=== PATIENT | female | born 1970 | race Caucasian/White ===

== ENCOUNTER 2016-06-27 21:20 | Emergency (ER) | payer OTHER ==
--- NOTE | 2016-06-27 22:16 | ED ORDER SUMMARY ---
..... Patient: JENNIFER BARR OrderSheet [facility] VisitID: [id number] [place] [address] 45y, F Registration Date/Time: 06/27/2016 ORDER SHEET Weight: 74.8 kg Allergies: No Known Drug Allergy GENERAL ORDERS: CBC w Diff Urgent (21:35 06/27/2016 HBivens A.R.N.P.) (Ack 21:38 AMcQuoid ER Tech1) (21:58 TBowen R.N.) CMP Urgent (21:35 06/27/2016 HBivens A.R.N.P.) (Ack 21:38 AMcQuoid ER Tech1) (21:58 TBowen R.N.) UA-Culture if indicated Urgent (21:35 06/27/2016 HBivens A.R.N.P.) (Ack 21:38 AMcQuoid ER Tech1) (21:58 TBowen R.N.) Amylase Urgent (21:35 06/27/2016 HBivens A.R.N.P.) (Ack 21:38 AMcQuoid ER Tech1) (21:58 TBowen R.N.) Lipase Urgent (21:35 06/27/2016 HBivens A.R.N.P.) (Ack 21:38 AMcQuoid ER Tech1) (21:58 TBowen R.N.) Urine Urgent (21:35 06/27/2016 HBivens A.R.N.P.) (Ack 21:38 AMcQuoid ER Tech1) (21:58 TBowen R.N.) MEDICATION ORDERS: K-Dur PO 40 meq (Do not crush or chew, NOW) (22:15 06/27/2016 HBivens A.R.N.P.) (22:18 TBowen R.N.) IV FLUIDS: IV NS : initial bolus 1000 mL (1000 mL/hr), then none - (NOW) (21:35 06/27/2016 HBivens A.R.N.P.) (21:58 TBowen R.N.) Toradol IV 30 mg (NOW) (21:35 06/27/2016 HBivens A.R.N.P.) (21:59 TBowen R.N.) Zofran IV 4 mg (NOW) (21:35 06/27/2016 HBivens A.R.N.P.) (21:59 TBowen R.N.) IV Saline Lock (21:35 06/27/2016 HBivens A.R.N.P.) (21:52 TBowen R.N.) ORDER SHEET NOTES: [Electronically signed by Amairani Medina R.N. (:06/27/2016)] [Electronically signed by Annette SoriaNKinaPKina (13:51 06/28/2016)] [Electronically locked/signed by Amairani Medina R.N. (:06/27/2016)]
--- NOTE | 2016-06-27 22:16 | ED NURSING NOTES ---
Clinical Report - Nurses [facility] [address] [place] [address] 06/27/2016 21:20 Patient: JENNIFER BARR TRIAGE Triage time 21:26. Acuity: LEVEL 3. Chief Complaint: ABDOMINAL PAIN, NAUSEA, VOMITING and DIARRHEA. --21:27 Cinthia De La Torre. 21:28 06/27/16. BP: 196/106. HR: 83. RR: 18. O2 saturation: 100%. Temp: 98 F. Pain level now: 10/12. --21:29 Cinthia De La Torre. Weight: 74.8 kg. Height/Length: 60 inches. BMI: 32.2. --21:27 Wil RIrene. Medications None. --21:27 Cinthia De La Torre. Allergies No Known Drug Allergy. --21:27 Cinthia De La Torre. History Arrived by private vehicle. Historian: patient. Onset. (3 days ago). She has had nausea, vomiting, diarrhea and abdominal pain. Treatment CONSTRUCTION SERVICES TECHNICIAN: None. PAST MEDICAL HX: Immunizations: up-to-date. Last normal menstrual period- 2 days ago. SOCIAL HX: Never smoker. Occasional alcohol use. No drug use. No recent travel. No known contact with a sick individual. SELF HARM ASSESSMENT: A self harm assessment was performed. The patient answered "no" to the question "Have you recently felt down, depressed, or hopeless?", "Have you noticed less interest or pleasure in doing things?", "Do you have thoughts of harming or killing yourself?", "Are you here because you tried to hurt yourself?", "Have you ever tried to hurt yourself before today?", "Have you recently had thoughts about harming or killing others?" and "Do you have any dangerous items in your possession?". FALL RISK ASSESSMENT: Fall risk assessment completed. No fall risk identified. NUTRITIONAL RISK ASSESSMENT: The nutritional risk assessment revealed no deficiencies. FUNCTIONAL ASSESSMENT: Functional assessment: no impairments noted. LEARNING NEEDS ASSESSMENT: The learning needs assessment revealed no barriers. ABUSE ASSESSMENT: Abuse assessment: The patient was asked "Do you feel safe in your home?". SKIN INTEGRITY ASSESSMENT: Skin integrity risk assessment completed. No skin integrity risk identified. --: Johnnie De La Torre PROBLEMS: Spontaneous (Miscarriage). LNMP - Last Normal Menstrual Period. Hypertension. --: Johnnie De La Torre ADDITIONAL SURGERIES: . D&C. Ectopic. --: Johnnie De La Torre Interventions ID band on patient. To treatment room. --: Johnnie De La Torre PHYSICAL ASSESSMENT Ambulatory to room. GENERAL / NEURO / PSYCH: Alert. Oriented X 4. Appears in no acute distress. HEENT: Mucous membranes are pink. RESPIRATORY: Respirations not labored. Breath sounds within normal limits. CVS: Normal sinus rhythm noted. Capillary refill less than 2 seconds. GI / : The patient has had nausea. Emesis noted. Has vomited several times. She has diarrhea. This has occurred several times. Abdomen soft. Bowel sounds within normal limits. SKIN: Skin is warm and dry. -- Johnnie De La Torre NURSING PROGRESS NOTES Patient gowned. Two patient identifiers checked. Call light placed in reach. Side rails up x 1. Bed placed in lowest position. Brakes of bed on. --: Johnnie De La Torre :52 06/27/2016 Site #1 started via IV in the right antecubital space with an 20g angiocath, with aseptic technique and good blood return; one attempt. Blood drawn: rainbow set. Labeled in the presence of the patient and sent to the lab. Saline lock flushed with 10 mL saline. --: Johnnie De La Torre Patient ID band checked for patient name and birthdate: patient confirmed. Clean catch urine collected with return of yellow-colored clear urine; sample sent to lab. Specimen labeled in the presence of the patient. --: Johnnie De La Torre 21:58 06/27/2016 Started bag #1 1000 mL IV Fluids IV NS (Saline); at 1000 mL/hr over 1 hour(s) via site #1 via IV pump. Allergies verified and confirmed 5 rights. IV patency established. IV site checked: no pain, redness, or swelling. IV flushed thoroughly pre- and post-medication administration. --21:58 Johnnie De La Torre 21:58 06/27/2016 Toradol IVP 30 mg given over 2 minute(s) via site #1. Allergies verified and confirmed 5 rights. IV patency established. IV site checked: no pain, redness, or swelling. IV flushed thoroughly pre- and post-medication administration. IVP given by RN. --21:58 Johnnie De La Torre 21:59 06/27/2016 Zofran (Ondansetron HCl) IVP 8 mg given over 2 minute(s) via site #1. Allergies verified and confirmed 5 rights. IV patency established. IV site checked: no pain, redness, or swelling. IV flushed thoroughly pre- and post-medication administration. IVP given by RN. --:59 Johnnie De La Torre 22:18 06/27/2016 K-DUR (Potassium Chloride Odalys ER) PO 40 meq given. Allergies verified and confirmed 5 rights. --22:18 Johnnie De La Torre 22:18 06/27/2016 IV Fluids IV NS Discontinued: bag #1 discontinued upon discharge. Total amount infused: 500 mL. IV patency established. IV site checked: no pain, redness, or swelling. IV flushed thoroughly. --22:18 Johnnie De La Torre DISPOSITION / DISCHARGE 22:24 06/27/2016 Site #1 removed upon discharge. Catheter intact. Bandaid applied. --:24 Johnnie De La Torre Departure time: 22:25. Condition at departure: improved. No learning barriers present. Discharge instructions provided and reviewed with the patient. Reviewed medication(s) side effects, precautions, dosing and course information. Prescription(s) given to the patient. Work note given. Patient verbalized understanding. Written instructions provided in British. No warning instructions, treatment instructions, referrals given to the patient, diet instructions or activity restrictions. No follow up contact number given or stop smoking instructions. The patient was discharged by the nurse practitioner. She was discharged home. She left the Emergency Department ambulatory and via private vehicle. Patient driving. FALL RISK ASSESSMENT: Fall risk assessment completed. No fall risk identified. --22:25 Johnnie De La Torre 22:23 06/27/16. BP: 174/89. HR: 89. RR: 18. O2 saturation: 99%. Temp: deferred. Pain level now: 0/10. --22:25 Johnnie De La Torre Locked/Released at 06/27/2016 22:26 by Johnnie De La Torre
--- NOTE | 2016-06-27 22:16 | ED ORDER SUMMARY ---
..... Patient: JENNIFER BARR OrderSheet [facility] VisitID: [id number] [place] [address] 45y, F Registration Date/Time: 06/27/2016 ORDER SHEET Weight: 74.8 kg Allergies: No Known Drug Allergy GENERAL ORDERS: CBC w Diff Urgent (21:35 06/27/2016 HBivens A.R.N.P.) (Ack 21:38 AMcQuoid ER Tech1) (21:58 TBowen R.N.) CMP Urgent (21:35 06/27/2016 HBivens A.R.N.P.) (Ack 21:38 AMcQuoid ER Tech1) (21:58 TBowen R.N.) UA-Culture if indicated Urgent (21:35 06/27/2016 HBivens A.R.N.P.) (Ack 21:38 AMcQuoid ER Tech1) (21:58 TBowen R.N.) Amylase Urgent (21:35 06/27/2016 HBivens A.R.N.P.) (Ack 21:38 AMcQuoid ER Tech1) (21:58 TBowen R.N.) Lipase Urgent (21:35 06/27/2016 HBivens A.R.N.P.) (Ack 21:38 AMcQuoid ER Tech1) (21:58 TBowen R.N.) Urine Urgent (21:35 06/27/2016 HBivens A.R.N.P.) (Ack 21:38 AMcQuoid ER Tech1) (21:58 TBowen R.N.) MEDICATION ORDERS: K-Dur PO 40 meq (Do not crush or chew, NOW) (22:15 06/27/2016 HBivens A.R.N.P.) (22:18 TBowen R.N.) IV FLUIDS: IV NS : initial bolus 1000 mL (1000 mL/hr), then none - (NOW) (21:35 06/27/2016 HBivens A.R.N.P.) (21:58 TBowen R.N.) Toradol IV 30 mg (NOW) (21:35 06/27/2016 HBivens A.R.N.P.) (21:59 TBowen R.N.) Zofran IV 4 mg (NOW) (21:35 06/27/2016 HBivens A.R.N.P.) (21:59 TBowen R.N.) IV Saline Lock (21:35 06/27/2016 HBivens A.R.N.P.) (21:52 TBowen R.N.) ORDER SHEET NOTES: [Electronically signed by Amairani Medina R.N. (:06/27/2016)] [Electronically signed by Annette SoriaNKinaPKina (13:51 06/28/2016)] [Electronically locked/signed by Amairani Medina R.N. (:06/27/2016)]
--- NOTE | 2016-06-27 22:16 | ED CLINICAL REPORT ---
Clinical Report - Physicians/[facility] [address] [place] [address] 06/27/2016 21:20 Patient: JENNIFER BARR Time Seen: 21:28; initial patient contact, initial documentation, patient care assumed. Arrived- By private vehicle. Historian- patient. HISTORY OF PRESENT ILLNESS Chief Complaint: VOMITING. This started about 3 days ago and is still present. No recent travel. She has had nausea and mild, constant abdominal pain. The pain is described as located in the epigastrium. She has had vomiting (x3-4 times today). The vomiting has occurred several times and has been bilious. No feculent emesis, blood-tinged emesis, coffee-grounds emesis, frankly bloody emesis or unusually dark emesis. She has had mild diarrhea (x3-4 times today). This has occurred several times. It has been watery. No bloody, mucous containing or blood-tinged diarrhea. No black stools, bloody stools, constipation, flank pain or known contact with a sick individual. No change in routine. Has not recently been camping or on antibiotics. Possible bad food exposure. The illness is described as moderate. Similar symptoms previously: None. Recent medical care: Not recently seen/assessed. REVIEW OF SYSTEMS No fever, difficulty with urination, dark urine, chest pain or difficulty breathing. All systems otherwise negative, except as recorded above. PAST HISTORY See nurses notes. PROBLEMS: Spontaneous (Miscarriage). LNMP - Last Normal Menstrual Period. Hypertension. --21:27 Wil R.N. ADDITIONAL SURGERIES: . D&C. Ectopic. --21:27 Wil R.N. SOCIAL HISTORY Never smoker. Occasional alcohol use. No drug use. No recent travel. Is a local resident. FAMILY HISTORY Negative. ADDITIONAL NOTES The nursing notes have been reviewed with agreement regarding the chief complaint, HPI, ROS, PMH and patient medications and allergies. PHYSICAL EXAM Vital Signs: 06/27/2016 21:28 BP: 196/106. HR: 83. RR: 18. O2 saturation: 100%. Temp: 98 F. Pain level now: 10/12. Have been reviewed as abnormal and appear to be correct. Hypertensive. Heart rate normal. Respiratory rate normal. Temperature normal. Oxygen saturation normal. Appearance: Alert. Oriented X3. No acute distress. Eyes: Pupils equal, round and reactive to light. Eyes normal inspection. Neck: Normal inspection. Neck supple. CVS: Normal heart rate and rhythm. Heart sounds normal. Pulses normal. Respiratory: No respiratory distress. Breath sounds normal. Abdomen: Soft and nontender. Bowel sounds normal. No organomegaly. No mass. Back: Normal inspection. Skin: Skin warm and dry. Normal skin color. No rash. Normal skin turgor. Extremities: Extremities exhibit normal ROM. No lower extremity edema. Neuro: Oriented X 3. No motor deficit. No sensory deficit. LABS, X-RAYS, AND EKG Laboratory Tests: UA-Culture if indicated: (CARLENE: 06/27/2016 21:40) ( [facility] 06/27/2016 22:09) Final results Test Result Flag Units (Reference) URINE COLOR YELLOW URINE APPEARANCE CLEAR URINE GLUCOSE NEGATIVE (NEGATIVE) URINE BILIRUBIN NEGATIVE (NEGATIVE) URINE KETONE NEGATIVE (NEGATIVE) URINE SPECIFIC GRAVITY 1.015 (1.010-1.030) URINE PH 7.0 (5.0-8.0) URINE PROTEIN NEGATIVE (NEGATIVE) URINE UROBILINOGEN 1.0 EU/dL (0.2-1.0) URINE NITRITE NEGATIVE (NEGATIVE) URINE BLOOD NEGATIVE (NEGATIVE) URINE LEUK ESTERASE NEGATIVE (NEGATIVE) URINE RBC NONE SEEN rbc/hpf (0-1) URINE WBC NONE SEEN wbc/hpf (0-1) URINE EPITHELIAL CELLS 1-3 EPI/hpf (0-5) 2+ AMORPHOUS URINE BACTERIA FEW (1+) (NONE SEEN) URINE COMMENT CULT NOT INDICATED URINE CULTURES ARE SET-UP BASED ON THE FOLLOWING CRITERIA:POSITIVE NITRITEPOSITIVE LEUKOCYTE ESTERASEGREATER THAN 10 WHITE BLOOD CELLSMODERATE (2+) OR GREATER BACTERIA Urine: (CARLENE: 06/27/2016 21:40) ( [facility] 21:51) Final results Test Result Flag Units (Reference) URINE NEGATIVE CBC w Diff: (CARLENE: 06/27/2016 21:45) ( M[facility]cv[facility] 06/27/2016 22:03) Final results Test Result Flag Units (Reference) WHITE BLOOD COUNT 8.1 K/uL (4.5-11.5) RED BLOOD COUNT 5.04 M/uL (4.00-5.20) HEMOGLOBIN 14.8 gm/dL (12.0-16.0) HEMATOCRIT 43.4 % (36.0-46.0) MEAN CELL VOLUME 86 fL (80-100) MEAN CORPUSCULAR HGB 29 pg (26-34) MEAN CORPUSCULAR HGB CONC 34 g/dL (31-37) RED CELL DISTRIBUTION WIDTH 13.0 % (11.6-14.8) PLATELET COUNT 411 H K/uL (150-400) NEUTROPHIL % 62.5 % (50-75) LYMPH % 26.0 % (25-40) MONO % 8.5 % (3-14) EOSINOPHIL % 2.0 % (0-4) BASOPHIL % 1.0 % (0-2) CMP: (CARLENE: 06/27/2016 21:45) ( MsgRcvd 06/27/2016 22:13) Final results Test Result Flag Units (Reference) GLUCOSE 102 mg/dL (70-110) BUN 7 mg/dL (7-18) CREATININE 0.9 mg/dL (0.6-1.3) Estimated GFR >60 mL/min Estimated GFR- >60 mL/min Note: Persistent reduction over 3 months in eGFR<60 mL/min/1.73 m2 defines CKD. Patients with eGFR values>=60 mL/min/1.73 m2 may also have CKD if evidence ofpersistent proteinuria. Additional information may be foundat www.kidney.org. SODIUM 142 mmol/L (136-145) POTASSIUM 3.1 L mmol/L (3.5-5.1) CHLORIDE 102 mmol/L (98-107) CARBON DIOXIDE 29 mmol/L (21-32) CALCIUM 9.2 mg/dL (8.5-10.1) TOTAL PROTEIN 8.7 H g/dL (6.4-8.2) ALBUMIN 4.2 g/dL (3.3-5.0) BILIRUBIN, TOTAL 0.4 mg/dL (0.0-1.0) ALKALINE PHOSPHATASE 98 U/L (46-116) AST (SGOT) 40 H U/L (15-37) ALT (SGPT) 68 U/L (12-78) LIPASE 253 U/L (73-393) AMYLASE 55 U/L (25-115) . PROGRESS AND PROCEDURES Patient counseled in person regarding the patient's stable condition, test results and diagnosis. 22:15. Differential Diagnosis: I considered gastritis, peptic ulcer disease, gastroesophageal reflux disease, GI bleed, Crohn's disease, colonic obstruction, colon cancer, gastroenteritis, cholecystitis, pancreatitis, viral syndrome, enterocolitis, urinary tract infection, hepatitis and as a possible cause of vomiting in this patient. This is a partial list of diagnoses considered. Above considerations are based on history, physical exam and laboratory data. Differential diagnosis was discussed with patient. Disposition: Discharged home in good and improved condition (22:15). Condition: good and stable. CLINICAL IMPRESSION Acute noninfectious gastroenteritis. INSTRUCTIONS Do not work today, tomorrow. Take clear liquids only (frequent sips) for the next 24 hours until better. May continue medications with sips only. Advance diet as tolerated. Avoid. (htn). Warnings: GENERAL WARNINGS: Return or contact your physician immediately if your condition worsens or changes unexpectedly, if not improving as expected, or if other problems arise. SPECIFICALLY, return if you develop pain in the abdomen or pelvis, fever, the inability to keep fluids down, blood in vomitus, blood in diarrhea, fainting or lightheadedness. Prescription Medications: Zofran 4 mg: Take 1 orally every six hours as needed for nausea/vomiting. Dispense ten (10). No refills. Substitution is permissible. Follow-up: Follow up with your doctor in about two days even if well. Summary of care provided to patient. Understanding of the discharge instructions verbalized by patient. (Electronically signed by Annette Soria A.R.N.P. 06/28/2016 13:51)
--- NOTE | 2016-06-28 13:51 | ED MED RECONCILIATION SUMMARY ---
Patient: JENNIFER BARR Medication Reconciliation Report [facility] VisitID: [id number] [place] [address] 45y, F Registration Date/Time: 06/27/2016 Weight: 74.8 kg Height/Length: 60 in. BMI: 32.2 ALLERGIES: No Known Drug Allergy The patient's Home Medications are listed below: NONE. The source(s) of the original Home Medication information: Not obtained. The following Medications were given to the patient in the Emergency Department: IV NS IV Fluids bolus 0, then 1000 mL/hr, administered: 06/27/2016 9:58:00 PM Toradol [IVP] IVP 30 mg, administered: 06/27/2016 9:58:00 PM Zofran [IVP] IVP 8 mg, administered: 06/27/2016 9:59:00 PM K-DUR [PO] PO 40 meq, administered: 06/27/2016 10:18:00 PM The following Medications were prescribed to the patient: Zofran 4 mg: Take 1 orally every six hours as needed for nausea/vomiting. Dispense ten (10). No refills. Substitution is permissible. -- Annette Soria A.R.N.P.
--- NOTE | 2016-06-28 13:51 | ED MED RECONCILIATION SUMMARY ---
Patient: JENNIFER BARR Medication Reconciliation Report [facility] VisitID: [id number] [place] [address] 45y, F Registration Date/Time: 06/27/2016 Weight: 74.8 kg Height/Length: 60 in. BMI: 32.2 ALLERGIES: No Known Drug Allergy The patient's Home Medications are listed below: NONE. The source(s) of the original Home Medication information: Not obtained. The following Medications were given to the patient in the Emergency Department: IV NS IV Fluids bolus 0, then 1000 mL/hr, administered: 06/27/2016 9:58:00 PM Toradol [IVP] IVP 30 mg, administered: 06/27/2016 9:58:00 PM Zofran [IVP] IVP 8 mg, administered: 06/27/2016 9:59:00 PM K-DUR [PO] PO 40 meq, administered: 06/27/2016 10:18:00 PM The following Medications were prescribed to the patient: Zofran 4 mg: Take 1 orally every six hours as needed for nausea/vomiting. Dispense ten (10). No refills. Substitution is permissible. -- Annette Soria A.R.N.P.
--- NOTE | 2016-06-28 13:51 | ED DISCHARGE INSTRUCTIONS ---
Patient: JENNIFER BARR General Instructions [facility] VisitID: [id number] [place] [address] 45y, F Registration Date/Time: 06/27/2016 Acute noninfectious gastroenteritis. INSTRUCTIONS Do not work today, tomorrow. Take clear liquids only (frequent sips) for the next 24 hours until better. May continue medications with sips only. Advance diet as tolerated. Avoid. (htn). Warnings: GENERAL WARNINGS: Return or contact your physician immediately if your condition worsens or changes unexpectedly, if not improving as expected, or if other problems arise. SPECIFICALLY, return if you develop pain in the abdomen or pelvis, fever, the inability to keep fluids down, blood in vomitus, blood in diarrhea, fainting or lightheadedness. Prescription Medications: Zofran 4 mg: Take 1 orally every six hours as needed for nausea/vomiting. Dispense ten (10). No refills. Substitution is permissible. Follow-up: Follow up with your doctor in about two days even if well. Summary of care provided to patient. Understanding of the discharge instructions verbalized by patient. ADDITIONAL INFORMATION Viral Gastroenteritis (6Yr-Adult) Gastroenteritis is another name for thestomach flu.It is most often caused by a virus that affects the stomach and intestinal tract. Symptoms include stomach cramping and fever, vomiting and/or diarrhea, and can last from 2 to 7 days. The danger from repeated vomiting or diarrhea is dehydration. This is the loss of too much water and minerals from the body. When this occurs, body fluids must be replaced. Antibiotics are not effective for this illness, but simple home treatment will be helpful. Home Care If symptoms are severe, rest at home for the next 24 hours. Avoid tobacco, caffeine, and alcohol use, which can worsen symptoms. Acetaminophen (Tylenol) or ibuprofen (Motrin, Advil) may be usedfor fever or pain unless another medication was prescribed. NOTE: If you have chronic liver or kidney disease or ever had a stomach ulcer or GI bleeding, talk with your doctor before using these medicines. Aspirin should never be used in anyone under 18 years of age who is ill with a fever. It may cause severe liver damage. If medicines for diarrhea or vomiting were prescribed, be sure they are takenonly as directed. If vomiting, drink small amounts of clear fluids (such as water, sports drinks, clear sodas) at frequent intervals to prevent dehydration. Start with 1 to 2 tablespoons every 10 minutes. Once vomiting stops, follow these guidelines: During The First 12 To 24 Hours follow the diet below: Beverages: Sport drinks like Gatorade, soft drinks without caffeine; emily frantz, mineral water (plain or flavored), decaffeinated tea and coffee. Soups: Clear broth, consomm and bouillon Desserts: Plain gelatin (Jell-O), Popsicles and fruit juice bars. During The Next 24 Hours you may add the following to the above: Hot cereal, plain toast, bread, rolls, crackers Plain noodles, rice, mashed potatoes, chicken noodle or rice soup Unsweetened canned fruit (avoid pineapple), bananas Limit fat intake to less than 15 grams per day by avoiding margarine, butter, oils, mayonnaise, sauces, gravies, fried foods, peanut butter, meat, poultry, and fish. Limit fiber; avoid raw or cooked vegetables, fresh fruits (except bananas), and bran cereals. Limit caffeine and chocolate. Do not use spices or seasonings except salt. During The Next 24 Hours The patient can gradually resume a normal diet as symptoms lessen. Preventing Spread Hand washing with soap and water is the best way to prevent the spread of viruses. Caregivers should wash their hands before andafter touching the sick person. The sick person, as well as everyone in the family,should wash their hands after using the toilet and before meals. Clean the toilet after each use. People with diarrhea should not prepare food for others. If you are preparing your own foods, wash your hands before and after. Follow Up with your doctor as advised. Call your doctor if you are not improving over the next 2 to 3 days. If a stool (diarrhea) sample was taken, you may call in 2 days (or as directed) for the results. Get Prompt Medical Attention if any of the following occur: Increasing abdominal pain Continued vomiting (unable to keep liquids down) Frequent diarrhea (more than 5 times a day) Blood in vomit or stool (black or red color) Dark urine, reduced urine output, or extreme thirst Weakness, dizziness, fainting Drowsiness, confusion, stiff neck, or seizure Fever of 100.4F (38C) oral or higher, not better with fever medication New rash Food Poisoning (6Yr-Adult) Food poisoning may occur from1 to 24 hours after eating food that has been contaminated or spoiled. The bacteria or toxins in contaminated or spoiled food cause symptoms very similar to the stomach flu. These include vomiting, diarrhea, stomach cramping, and fever. Food poisoning usually lasts 1 to 2 days. Antibiotics are not effective. Instead, simple home treatment will be helpful. Home Care: If symptoms are severe, rest at home for the next 24 hours. You may use acetaminophen (Tylenol) or ibuprofen (Motrin, Advil) to control fever, unless another medication was prescribed. [NOTE: If you have chronic liver or kidney disease or ever had a stomach ulcer or GI bleeding, talk with your doctor before using these medications. Do not give aspirin to anyone under 18 years of age who is ill with a fever.] Avoid tobacco, caffeine, and alcohol, which may worsen your symptoms. If medicines for diarrhea or vomiting were prescribed, take only as directed. Once vomiting stops, follow these guidelines: During the first 12-24 hours follow the diet below: BEVERAGES: Sport drinks like Gatorade, soft drinks without caffeine, emily frantz, mineral water (plain or flavored), decaffeinated or herbal tea, and coffee SOUPS: Clear broth, consomm, and bouillon DESSERTS: Plain gelatin (Jell-O), popsicles, and fruit juice bars During the next 24hours you may add the following to the above: Hot cereal, plain toast, bread, rolls, crackers Plain noodles, rice, mashed potatoes, chicken noodle or rice soup Unsweetened canned fruit (avoid pineapple), bananas Limit fat intake to less than 15 grams per day by avoiding margarine, butter, oils, mayonnaise, sauces, gravies, fried foods, peanut butter, meat, poultry and fish. Limit fiber; avoid raw or cooked vegetables, fresh fruits (except bananas) and bran cereals. Limit caffeine and chocolate. No spices or seasonings except salt. Gradually resume a normal diet as you feel better and your symptoms lessen. Follow Up With Your Doctor As Advised If You Are Not Better In 2 Days. If A Stool (Diarrhea) Sample Was Taken, You May Call In 2 Days (Or As Directed) For The Results. Get Prompt Medical Attention If Any Of The Following Occur: Increasing abdominal pain or constant lower right abdominal pain Continued vomiting (unable to keep liquids down) Frequent diarrhea (more than 5 times a day) Blood in vomit or stool (black or red color) Reduced oral intake Signs of dehydration: increased thirst, dark urine, reduced or no urine output, dry mouth and tongue, tiredness or weakness, dizziness when standing, rapid breathing Fever of 100.4F (38C) oral or higher, not better with fever medication New rash Dehydration (Adult) Dehydration occurs when your body loses too much fluid. This may be the result of vomiting a lot or from diarrhea,sweating a lot, or a high fever. It may also happen if you dont drink enough fluid when youre sick. Misuse of diuretics (water pills) can also be a cause. Symptoms include thirst and feeling dizzy, weak, fatigued, or very drowsy. The diet described below is usually enough to treat most cases. Sometimes you may needmedicine. Home Care Follow these guidelines for home care: Drink at least 12 8-ounce glasses of fluid every day to overcome the dehydration. Fluid may include water; orange juice; lemonade; apple, grape, and cranberry juice; clear fruit drinks; electrolyte replacement and sports drinks; and teas and coffee without caffeine. If you have been diagnosed with a kidney disease, ask your doctor how much and what types of fluids you should drink to prevent dehydration. If you have kidney disease, drinking too much fluid can cause it build up in the your body and be dangerous to your health. If you have fever, muscle aching, or headache from a viral syndrome, you may useacetaminophen or ibuprofen, unless another medicine was prescribed for this.If you have chronic liver or kidney disease or ever had a stomach ulcer or GI bleeding, talk with your doctor before using these medicines. Don't take aspirin if you are younger than 18 and are ill with a fever.Aspirin raises the chance forsevere liver injury. Follow-up care Follow up with your health care provider if you don't get better in the next 24 to 48 hours. When to seek medical care Get prompt medical attention if any of theseoccur: Continued vomiting (cant keep liquids down) Frequent diarrhea (more than 5 times a day); blood (red or black color) or mucus in diarrhea Blood in vomit or stool Swollen abdomen or increasing abdominal pain Weakness, dizziness, or fainting Unusually drowsy or confused Reduced urine output or extreme thirst Fever of 100.4 F (38 C) oral or higher that does not get better with fever medication Hypokalemia Hypokalemia means a low level of potassium in the blood. This most often occurs in patients who take diuretics (water pills). It can also occur due to severe vomiting or diarrhea. A mild case usually causes no symptoms. It is only found with blood testing. More severe potassium loss causes generalized weakness, muscle or abdominal cramping, heart palpitations (rapid or irregular heartbeats) and low blood pressure. Home Care: 1) Take any potassium supplements prescribed. 2) Eat foods rich in potassium. The highest amount is found in artichoke, baked potatoes, spinach, cantaloupe, honeydew melon, cod, halibut, salmon, and scallops. White, red, or [place] beans are also very good sources. A modest amount is found in orange juice, bananas, carrots, and tomato juice. 3) Certain types of diuretics (water pills), such as Lasix (furosemide), require that you take potassium supplements for as long as you take the diuretic pills. If you are taking a diuretic, discuss the need for potassium supplements with your doctor. Follow Up with your doctor for a repeat blood test within the next week or as advised by our staff. Get Prompt Medical Attention if any of the following occur: -- Increased weakness -- Feeling dizzy -- Irregular heartbeat, extra beats or very fast heart rate -- Fainting spell Gastroenteritis [Non-Infectious, 6 Yr-Adult] Your symptoms today are coming from the intestinal tract. This may occur as a result of food sensitivity, inflammation of the GI tract, medicines, stress or other causes not related to infection. This may last from 1-3 days. Antibiotics are not effective, but simple home treatment will be helpful. Home Care: If symptoms are severe, rest at home for the next 24 hours. You may use acetaminophen (Tylenol) or ibuprofen (Motrin, Advil) to control fever, unless another medicine was prescribed. [NOTE: If you have chronic liver or kidney disease or ever had a stomach ulcer or GI bleeding, talk with your doctor before using these medicines.] (Aspirin should never be used in anyone under 18 years of age who is ill with a fever. It may cause severe liver damage.) Avoid tobacco and alcohol use, which may make your symptoms worse. If medicines for diarrhea or vomiting were prescribed, take only as directed. Once vomiting stops, then follow these guidelines: During The First 12-24 Hours follow the diet below: gingerale, mineral water (plain or flavored), decaffeinated tea and coffee. During The Next 24 Hours you may add the following to the above: DURING THE NEXT 24 HOURS Gradually resume a normal diet, as you feel better and your symptoms lessen. Follow Up with your doctor as advised if you are not improving over the next 2-3 days. If a stool (diarrhea) sample was taken, you may call in 2 days (or as directed) for the results. Get Prompt Medical Attention if any of the following occur: Increasing abdominal pain or constant lower right abdominal pain Continued vomiting (unable to keep liquids down) Frequent diarrhea (more than 5 times a day) Blood in vomit or stool (black or red color) Reduced oral intake Dark urine, reduced urine output Weakness, dizziness, fainting Drowsiness, confusion, stiff neck or seizure Fever of 100.4F (38C) or higher, or as directed by your healthcare provider New rash Clear Liquid Diet Clear liquids are any liquid that you can see through as well as those that are very easy to digest. This is used while the body is recovering from irritation or infection of the stomach or intestinal tract. It may also be used before special procedures or surgery. This diet is to be used no more than three days. You may include the following items. Adults Adults should drink a total of 23 quarts of liquid per day. It may be easier to drink small frequent servings rather than a few large ones. Liquids can include: Fruit juices.Strained orange juice or lemonade (no pulp), apple, grape and cranberry juice, clear fruit drinks, sports drinks Beverages.Sport drinks, sodas, mineral water (plain or flavored), tea, black coffee, liquid gelatin (add twice the recommended amount of water) Soups.Clear broth, consomm, bouillon Desserts.Plain gelatin, popsicles, fruit juice bars Children Over 2 years old The following liquids are acceptable for children over age 2: Fruit juices.Strained orange juice or lemonade (no pulp), apple, grape and cranberry juice, clear fruit drinks Beverages. Sports drinks, sodas, mineral water (plain or flavored), tea, liquid gelatin (add twice the recommended amount of water) Soups. Clear broth, consomm, bouillon Desserts. Plain gelatin, popsicles, fruit juice bars Children under 2 years old Oral rehydration fluids such are available at drug stores and most grocery stores without a prescription. [place] Diet A bland diet is used for patients with an upset stomach. It consists of foods that are mild and easy to digest. It is better to eat small frequent meals rather than three large meals a day. BEVERAGES OK: Fruit juices, non-caffeinated teas and coffee, non-carbonated conteh AVOID: Carbonated beverage, caffeinated tea and coffee, all alcoholic beverages BREAD OK: Refined white, wheat or rye bread, yahir or soda crackers, [place] toast, plain rolls, bagels AVOID: Whole-grain bread CEREAL OK: Refined cereals: cooked or ready to eat AVOID: Whole grain cereals and granola, or those containing bran, seeds or nuts DESSERTS OK: Peanut butter and all others except those to "avoid" AVOID: Chocolate, cocoa, coconut, popcorn, nuts, seeds, jam, marmalade FRUITS OK: Canned, cooked, frozen or fresh fruits without seeds or tough skin AVOID: Olives, skin and seeds of fruit MEATS OK: All fresh or preserved meat, fish and fowl AVOID: Any that are prepared with those spices to "avoid" CHEESE & EGGS OK: Eggs, cottage cheese, cream cheese, other cheeses AVOID: All cheeses made with those spices to "avoid" POTATOES & PASTA OK: Potato, rice, macaroni, noodles, spaghetti AVOID: None SOUPS OK: All soups without heavy seasoning AVOID: Soups made with those spices to "avoid" VEGETABLES OK: Canned, cooked, fresh or frozen mildly flavored vegetables without seeds, skins or coarse fiber AVOID: Vegetables prepared with those spices to "avoid"; skin and seeds of vegetables and those with coarse fiber SPICES OK: Salt, lemon and [place] juice, vinegar, all extracts, jose david, cinnamon, thyme, mace, allspice, paprika AVOID: [place] powder, cloves, pepper, seed spices, garlic, gravy pickles, highly seasoned salad dressings Clear Liquid Diet Clear liquids are any liquid that you can see through as well as those that are very easy to digest. This is used while the body is recovering from irritation or infection of the stomach or intestinal tract. It may also be used before special procedures or surgery. This diet is to be used no more than three days. You may include the following items. Adults Adults should drink a total of 23 quarts of liquid per day. It may be easier to drink small frequent servings rather than a few large ones. Liquids can include: Fruit juices.Strained orange juice or lemonade (no pulp), apple, grape and cranberry juice, clear fruit drinks, sports drinks Beverages.Sport drinks, sodas, mineral water (plain or flavored), tea, black coffee, liquid gelatin (add twice the recommended amount of water) Soups.Clear broth, consomm, bouillon Desserts.Plain gelatin, popsicles, fruit juice bars Children Over 2 years old The following liquids are acceptable for children over age 2: Fruit juices.Strained orange juice or lemonade (no pulp), apple, grape and cranberry juice, clear fruit drinks Beverages. Sports drinks, sodas, mineral water (plain or flavored), tea, liquid gelatin (add twice the recommended amount of water) Soups. Clear broth, consomm, bouillon Desserts. Plain gelatin, popsicles, fruit juice bars Children under 2 years old Oral rehydration fluids such are available at drug stores and most grocery stores without a prescription. Ondansetron Oral disintegrating tablet What is this medicine? ONDANSETRON (on MARIA E se ar) is used to treat nausea and vomiting caused by chemotherapy. It is also used to prevent or treat nausea and vomiting after surgery. How should I use this medicine? These tablets are made to dissolve in the mouth. Do not try to push the tablet through the foil backing. With dry hands, peel away the foil backing and gently remove the tablet. Place the tablet in the mouth and allow it to dissolve, then swallow. While you may take these tablets with water, it is not necessary to do so. Talk to your certified ophthalmic assistant regarding the use of this medicine in children. Special care may be needed. What side effects may I notice from receiving this medicine? Side effects that you should report to your doctor or health hiv/aids care nurse as soon as possible: allergic reactions like skin rash, itching or hives, swelling of the face, lips, or tongue breathing problems dizziness fast or irregular heartbeat feeling faint or lightheaded, falls fever and chills swelling of the hands and feet tightness in the chest Side effects that usually do not require medical attention (report to your doctor or health hiv/aids care nurse if they continue or are bothersome): constipation or diarrhea headache What may interact with this medicine? Do not take this medicine with any of the following medications: -apomorphine -cisapride -dofetilide -dronedarone -pimozide -thioridazine -ziprasidone This medicine may also interact with the following medications: -carbamazepine -phenytoin -rifampicin -tramadol -other medicines that prolong the QT interval (cause an abnormal heart rhythm) What if I miss a dose? If you miss a dose, take it as soon as you can. If it is almost time for your next dose, take only that dose. Do not take double or extra doses. Where should I keep my medicine? Keep out of the reach of children. Store between 2 and 30 degrees C (36 and 86 degrees F). Throw away any unused medicine after the expiration date. What should I tell my health care provider before I take this medicine? They need to know if you have any of these conditions: heart disease history of irregular heartbeat liver disease low levels of magnesium or potassium in the blood an unusual or allergic reaction to ondansetron, granisetron, other medicines, foods, dyes, or preservatives or trying to get breast-feeding What should I watch for while using this medicine? Check with your doctor or health hiv/aids care nurse as soon as you can if you have any sign of an allergic reaction. You have been given the following additional information: Gastroenteritis, Viral (6Y-Adult) Food Poisoning (6Yr-Adult) Dehydration (Adult) Hypokalemia Gastroenteritis, Non-Infectious (Child) (Adult) Diet, Clear Liquid Diet, [place] (Adult) Diet, Clear Liquid Ondansetron Oral disintegrating tablet Do not work today, tomorrow. (Electronically signed by Annette Soria A.R.N.P. 06/28/2016 13:51)
--- NOTE | 2016-06-28 13:51 | ED MAR SUMMARY ---
..... Medication Administration Record [facility] [address] [place] [address] Patient: JENNIFER BARR Visit ID: [id number] 45y, F Weight: 74.8 kg Height/Length: 60 in BMI: 32.2 ALLERGIES: No Known Drug Allergy Start 21:58 06/27/2016 Wil RKinaN., Stop 22:18 06/27/2016 Genevieve De La TorreN. Medication Administered: IV NS (SALINE), Dose: IV Fluids over 1 hour(s), Rate: 1000 mL/hr, Dispensed: 1000 mL bag, Site: #1 right AC. Medication Ordered: IV NS : initial bolus 1000 mL (1000 mL/hr), then none - (NOW). Given 21:58 06/27/2016 Wil R.N. Medication Administered: TORADOL [IVP], Dose: 30 mg IVP over 2 minute(s), Site: #1 right AC. Medication Ordered: Toradol IV 30 mg (NOW). Given 21:59 06/27/2016 Wil, R.N. Medication Administered: ZOFRAN [IVP] (ONDANSETRON HCL), Dose: 8 mg IVP over 2 minute(s), Site: #1 right AC. Medication Ordered: Zofran IV 4 mg (NOW). Given 22:18 06/27/2016 Wil, R.N. Medication Administered: K-DUR [PO] (POTASSIUM CHLORIDE SENA ER), Dose: 40 meq PO. Medication Ordered: K-Dur PO 40 meq (Do not crush or chew, NOW).
--- NOTE | 2016-06-28 13:51 | ED MAR SUMMARY ---
..... Medication Administration Record [facility] [address] [place] [address] Patient: JENNIFER BARR Visit ID: [id number] 45y, F Weight: 74.8 kg Height/Length: 60 in BMI: 32.2 ALLERGIES: No Known Drug Allergy Start 21:58 06/27/2016 Wil RKinaN., Stop 22:18 06/27/2016 Genevieve De La TorreN. Medication Administered: IV NS (SALINE), Dose: IV Fluids over 1 hour(s), Rate: 1000 mL/hr, Dispensed: 1000 mL bag, Site: #1 right AC. Medication Ordered: IV NS : initial bolus 1000 mL (1000 mL/hr), then none - (NOW). Given 21:58 06/27/2016 Wil R.N. Medication Administered: TORADOL [IVP], Dose: 30 mg IVP over 2 minute(s), Site: #1 right AC. Medication Ordered: Toradol IV 30 mg (NOW). Given 21:59 06/27/2016 Wil, R.N. Medication Administered: ZOFRAN [IVP] (ONDANSETRON HCL), Dose: 8 mg IVP over 2 minute(s), Site: #1 right AC. Medication Ordered: Zofran IV 4 mg (NOW). Given 22:18 06/27/2016 Wil, R.N. Medication Administered: K-DUR [PO] (POTASSIUM CHLORIDE SENA ER), Dose: 40 meq PO. Medication Ordered: K-Dur PO 40 meq (Do not crush or chew, NOW).
== END 2016-06-27 22:20 | disposition home or self-care (01) ==
LOC: ED SRH 21:20
DX: K52.9 Noninfective gastroenteritis and colitis, unspecified (principal); I10 Essential (primary) hypertension
CPT/HCPCS: 90004; 90100; 92235; 92530; 93070; 95059